=== PATIENT | female | born 1955 | race Caucasian/White ===

== ENCOUNTER 2021-01-07 17:33 | Emergency (ER) | payer OTHER ==
[~2021-01-07] VITALS: Ht 162.6 cm; Wt 65.3 kg
--- NOTE | 2021-01-07 17:43 | NUR ---
BIBA RA99 "Choked on meatloaf" Patient a/ox3, breathing even and unlabored no sob noted. No difficulty breathing or swallowing at this time. Throat is clear. Pulse ox is 95% on room air.
--- NOTE | 2021-01-07 17:54 | NUR ---
DAUGHTER KIM [phone]
--- NOTE | 2021-01-07 18:34 | NUR ---
PO CHALLENGED, 5ML THEN 60ML OF WATER - PASSED
--- NOTE | 2021-01-07 19:04 | NUR ---
patient discharged home to daughter, discharge instructions provided. xray copies given to family. Assisted to wheelchair.
[2021-01-07 19:05] VITALS: BP 129/89
== END 2021-01-07 19:13 | disposition home or self-care (01) ==
LOC: ER 17:37
DX: R09.89 Other specified symptoms and signs involving the circulatory and respiratory systems (principal); K22.4 Dyskinesia of esophagus; I10 Essential (primary) hypertension; E11.9 Type 2 diabetes mellitus without complications; Z88.0 Allergy status to penicillin
CPT/HCPCS: 70360-TC; 71045-TC